=== PATIENT | female | born 1975 | race Caucasian/White ===

== ENCOUNTER 2016-11-23 11:19 | Emergency (ER) | payer BC ==
[~2016-11-23] VITALS: Ht 165.1 cm; Wt 65.0 kg
[~2016-11-23 11:19] MED LIST: ADVAIR 250/501 DISK IH; ADVIL200 MG PO; BENTYL20 MG PO; CIPRO500 MG PO; DEXILANT60 MG PO; IBUPROFEN800 MG PO; LEXAPRO10 MG PO; NORCO 5/3251 TABLET PO; PERCOCET 5/31 TABLET PO; VALACYCLOVIR1000 MG PO; VENTOLIN HFA18 GM IH; XANAX0.25 MG PO; ZOFRAN ODT4 MG PO
[2016-11-23 12:23] LABS: HEMATOCRIT 43.5 % (36.0-46.0); MCH 28.6 PG (29.0-34.0); MCHC 32.6 G/DL (30.0-36.0); MCV 87.7 FL (83-99); RBC DIS.WIDTH-CV 13.6 % (11.8-14.6); RBC DIS.WIDTH-SD 43.8 % (39-53); RED BLOOD COUNT 4.96 M/uL (3.80-5.20); WHITE BLOOD COUNT 6.5 K/uL (4.1-10.2)
[2016-11-23 12:34] LABS: CHLORIDE 106 mEq/L (99-109); POTASSIUM 4.2 mEq/L (3.7-5.4); SODIUM 141 mEq/L (136-147)
[2016-11-23 12:35] LABS: GLUCOSE 86 mg/dL (70-99)
[2016-11-23 12:37] LABS: ANION GAP 9 MEQ/L (2-14)
[2016-11-23 12:39] LABS: GFR ESTIMATE (CALCULATED) > 59 mL/min/
[2016-11-23 12:40] LABS: UREA NITROGEN (BUN) 14 mg/dL (9-23)
[2016-11-23 12:44] LABS: TROP-I INTERPRETATION NEGATIVE; TROPONIN-I < 0.01 ng/mL (0.0-0.30)
[2016-11-23] MEDS ORDERED: flovent (12:58)
[2016-11-23] MEDS ORDERED: MEDROL DOSEPAK4 MG PO (12:59)
[2016-11-23] MEDS ORDERED: proair (12:59)
[2016-11-23 13:19] LABS: MEAN PLAT.VOLUME 11.1 uM^3 (9.5-12.4); PLATELET COUNT 230 K/uL (156-360)
[2016-11-23 15:43] LABS: D-DIMER ELISA < 0.15 mg/L FEU (< 0.57)
[2016-11-23 15:52] LABS: TROP-I INTERPRETATION NEGATIVE; TROPONIN-I < 0.01 ng/mL (0.0-0.30)
[2016-11-23 16:32] VITALS: BP 108/68
== END 2016-11-23 16:44 | disposition home or self-care (01) ==
LOC: EME 11:19
PROVIDERS: Emergency Medicine
DX: R07.89 Other chest pain (principal); J45.909 Unspecified asthma, uncomplicated; Z90.49 Acquired absence of other specified parts of digestive tract; F17.210 Nicotine dependence, cigarettes, uncomplicated
CPT/HCPCS: 71020; 80048; 84484; 85027; 85379; 93005; 99281; 99284